=== PATIENT | female | born 1975 | race Caucasian/White ===

== ENCOUNTER 2017-02-26 15:02 | Observation (INO) | payer SELFPAY ==
--- NOTE | 2017-02-26 15:04 | ED PDOC ---
Arrival/HPI - General Time Seen by Provider: 02/26/17 15:04 Historian: Patient - History of Present Illness Narrative History of Present Illness (Text): 02/26/17 15:04 41 year old female, no significant pmh, nkda, complaining of sudden onset of lt. flank pain with hematuria started 2 hours ago. Aching and sharp pain, lt. flank to the lt. sided abdomen, admits nausea and vomit 1 episode, no numbness or tingling, no lower back pain, no palpitation, no chest pain, no coughing, no other medical or psychological complaints. Past Medical History - Provider Review Nursing Documentation Reviewed: Yes Family/Social History - Physician Review Nursing Documentation Reviewed: Yes Family/Social History: Unknown Family HX Allergies/Home Meds Allergies/Adverse Reactions: Allergies No Known Allergies Allergy (Verified 02/26/17 15:08) Review of Systems - Review of Systems Constitutional: absent: Fatigue, Fevers Eyes: absent: Vision Changes ENT: absent: Hearing Changes Respiratory: absent: SOB, Cough Cardiovascular: absent: Chest Pain Gastrointestinal: Abdominal Pain, Nausea, Vomiting Genitourinary Female: Hematuria. absent: Dysuria, Frequency Musculoskeletal: Back Pain. absent: Arthralgias Skin: absent: Rash, Pruritis Neurological: absent: Headache, Dizziness Physical Exam Vital Signs Reviewed: Yes Vital Signs Temp Pulse Resp BP Pulse Ox 02/26/17 21:06 71 18 131/85 98 02/26/17 16:26 74 18 125/56 L 99 02/26/17 15:08 97.7 F 62 20 154/83 H 99 Temperature: Afebrile Blood Pressure: Hypertensive Pulse: Regular Respiratory Rate: Normal Appearance: Positive for: Well-Appearing, Non-Toxic Pain Distress: Severe Mental Status: Positive for: Alert and Oriented X 3 - Systems Exam Head: Present: Atraumatic, Normocephalic Pupils: Present: PERRL Extroacular Muscles: Present: EOMI Conjunctiva: Present: Normal Mouth: Present: Moist Mucous Membranes Neck: Present: Normal Range of Motion Respiratory/Chest: Present: Clear to Auscultation, Good Air Exchange. No: Respiratory Distress, Accessory Muscle Use Cardiovascular: Present: Regular Rate and Rhythm, Normal S1, S2. No: Murmurs Abdomen: Present: Tenderness (lt. sided abdomen), Normal Bowel Sounds. No: Distention, Peritoneal Signs Back: Present: Normal Inspection, CVA Tenderness (+Left flank), Other (no rash) . No: Paraspinal Tenderness Upper Extremity: Present: Normal Inspection. No: Cyanosis, Edema Lower Extremity: Present: Normal Inspection. No: Edema Neurological: Present: GCS=15, Speech Normal, Motor Func Grossly Intact, Gait Normal, Memory Normal Skin: Present: Warm, Dry, Normal Color. No: Rashes Psychiatric: Present: Alert, Oriented x 3, Normal Insight, Normal Concentration Medical Decision Making ED Course and Treatment: 02/26/17 15:26 -labs/ua -CT abdomen and pelvis -IVF/morphine/zofran -Observe and reassess 02/26/17 19:12 -Labs are significant for wbc 12 -Urinalysis show +UTI -CT Abdomen and pelvis: -1. Mild left obstructive uropathy resulting from two 4 mm stones in the left proximal ureteral. -2. Punctate nonobstructing stone in the lower pole of the left kidney. -3. Enlarged fibroid uterus with a large intramural fibroid along the right lateral wall of the uterus. -4. Solitary small gallstone. -IV rocephine/flomax ordered -Pt. will need admission for infected stone. 02/26/17 19:35 -I discussed the case with Dr. Mcneil including labs/radiology results, he will follow up the case and call urologist for routine consult. -Flomax and IVF ordered. -I discussed with Dr. Skinner and he will put in the admission order. - Lab Interpretations Microbiology Results: Microbiology Results 02/26/17 18:17 Urine,Clean Catch Urine Culture - Final Strep Agalactiae Group B Lab Results: 02/26/17 15:24 02/26/17 15:24 Lab Results 02/26/17 15:59: Urine Color Light red, Urine Appearance Bloody, Urine pH 8.5, Ur Specific [place] 1.020, Urine Protein 100 H, Urine Glucose (UA) Negative, Urine Ketones Trace H, Urine Blood Large H, Urine Nitrate Positive H, Urine Bilirubin Negative, Urine Urobilinogen 1.0 H, Ur Leukocyte Esterase Trace H, Urine RBC Tntc, Urine WBC 2 - 5, Ur Epithelial Cells 3 - 4, Urine Bacteria Small , Urine HCG, Qual Negative 02/26/17 15:24: Sodium 142, Potassium 3.9, Chloride 105, Carbon Dioxide 25, Anion Gap 16, BUN 27 H, Creatinine 0.8, Est GFR ( Amer) > 60, Est GFR ( Non-Af Amer) > 60, Random Glucose 121 H, Calcium 10.8 H, Total Bilirubin 0.3, AST 41 H, ALT 37, Alkaline Phosphatase 74, Total Protein 7.2, Albumin 4.3, Globulin 2.9, Albumin/Globulin Ratio 1.5, Lipase 62 02/26/17 15:24: WBC 12.7 H, RBC 4.60, Hgb 13.3, Hct 41.5, MCV 90.2, MCH 28.9, MCHC 32.0, RDW 14.2, Plt Count 296, MPV 10.9, Gran % 80.5 H, Lymph % (Auto) 11.7 L, [place] % (Auto) 5.6, Eos % (Auto) 2.0, Baso % (Auto) 0.2, Gran # 10.27 H, Lymph # 1.5, [place] # 0.7 H, Eos # 0.3, Baso # 0.02 I have reviewed the lab results: Yes Interpretation: Abnormal lab values (wbc 12.7) - RAD Interpretation Radiology Orders: 02/26/17 15:24 ABDOMEN & PELVIS [ABD & PELVIS IV CONTRAST ONLY] [CT] Stat 02/26/17 19:20 CHEST PORTABLE [RAD] Stat PROCEDURE: CT Abdomen and Pelvis with contrast HISTORY: Left sided abdominal pain COMPARISON: None. TECHNIQUE: CT scan of the abdomen and pelvis was performed after intravenous administration of contrast. Oral contrast was not administered. Coronal and sagittal reformatted images were obtained. Contrast dose: 100 mL Omnipaque 350 Radiation dose: Total exam DLP = 586.54 mGy-cm. This CT exam was performed using one or more of the following dose reduction techniques: Automated exposure control, adjustment of the mA and/or kV according to patient size, and/or use of iterative reconstruction technique. FINDINGS: LOWER THORAX: There is bibasilar subsegmental atelectasis. Incompletely imaged are bilateral retroglandular saline implants. LIVER: The liver is normal in size and there is homogeneous enhancement No gross lesion or ductal dilatation. GALLBLADDER AND BILE DUCTS: The gallbladder is well distended. There is a tiny calcified gallstone along the posterior wall. PANCREAS: The pancreas is normal in size and there is homogeneous enhancement. No gross lesion or ductal dilatation. SPLEEN: The spleen is normal in size without focal lesion. There is a nonspecific calcification in the lower pole. ADRENALS: Both adrenal glands are normal in size without discrete nodule. KIDNEYS AND URETERS: Both kidneys are normal in size and there is homogeneous enhancement. There are two 4 mm obstructing stones in the left proximal ureteral with resultant mild dilatation of the proximal ureteral, mild hydronephrosis and mild perinephric inflammatory changes. There is also a punctate nonobstructing stone in the lower pole of the left kidney. There is no right nephrolithiasis. VASCULATURE: No aortic aneurysm. BOWEL: Unremarkable. No obstruction. No gross mural thickening. APPENDIX: Normal appendix. PERITONEUM: No free fluid. No free air. LYMPH NODES: No enlarged lymph nodes. BLADDER: Grossly normal in appearance. REPRODUCTIVE: There is an enlarged fibroid uterus with a large intramural fibroid along the right lateral wall BONES: No acute fracture. There is severe levoscoliosis in the lumbar spine and posterior spinal fixation from T11 to L3. OTHER FINDINGS: None. IMPRESSION: 1. Mild left obstructive uropathy resulting from two 4 mm stones in the left proximal ureteral. 2. Punctate nonobstructing stone in the lower pole of the left kidney. 3. Enlarged fibroid uterus with a large intramural fibroid along the right lateral wall of the uterus. 4. Solitary small gallstone. Chest x-ray: no active disease Stock Replenisher: Radiologist - Medication Orders Current Medication Orders: Discontinued Medications Albuterol/Ipratropium (Duoneb 3 Mg/0.5 Mg (3 Ml) Ud) 3 ml IH Q6 PRN PRN Reason: Shortness of Breath Last Admin: 02/27/17 11:37 Dose: 3 ml Sodium Chloride (Sodium Chloride 0.9%) 1,000 mls @ 999 mls/hr IV .Q1H1M STA Stop: 02/26/17 16:22 Last Admin: 02/26/17 15:45 Dose: 999 mls/hr eMAR Start Stop Document 02/26/17 15:45 SE (Rec: 02/26/17 15:45 SE [facility] [id number]) Intravenous Solution Start Date 02/26/17 Start Time 15:45 Ceftriaxone Sodium (Rocephin 1 Gram Ivpb) 1 gm in 100 mls @ 200 mls/hr IVPB STAT STA PRN Reason: Protocol Stop: 02/26/17 16:53 Last Admin: 02/26/17 16:52 Dose: 200 mls/hr eMAR Start Stop Document 02/26/17 16:52 SE (Rec: 02/26/17 16:52 SE [facility] [id number]) Intravenous Solution Start Date 02/26/17 Start Time 16:52 Sodium Chloride (Sodium Chloride 0.9%) 1,000 mls @ 250 mls/hr IV .Q4H [facility] Last Admin: 02/26/17 19:55 Dose: 250 mls/hr eMAR Start Stop Document 02/26/17 19:55 SE (Rec: 02/26/17 19:55 [place] [facility] [id number] Intravenous Solution Start Date 02/26/17 Start Time 19:55 Sodium Chloride (Sodium Chloride 0.9%) 1,000 mls @ 250 mls/hr IV .Q4H [facility] Last Admin: 02/27/17 00:33 Dose: 250 mls/hr eMAR Start Stop Document 02/27/17 00:33 AVL (Rec: 02/27/17 00:34 AVL [id number]) Intravenous Solution Start Date 02/26/17 Start Time 23:35 End Date 02/27/17 Sodium Chloride (Sodium Chloride 0.9%) 1,000 mls @ 100 mls/hr IV .Q10H [facility] Last Admin: 02/27/17 10:32 Dose: 100 mls/hr eMAR Start Stop Document 02/27/17 10:32 DSZ (Rec: 02/27/17 10:32 DSZ [id number]) Intravenous Solution Start Date 02/27/17 Start Time 09:00 Morphine Sulfate (Morphine) 4 mg IVP STAT STA Stop: 10/06/17 15:23 Last Admin: 02/26/17 15:48 Dose: 4 mg MAR Pain Assessment Document 02/26/17 15:48 SE (Rec: 02/26/17 15:48 [place] [facility] [id number][place] Pain Reassessment Is this a pain reassessment? No Sleep Is patient sleeping during reassessment? No Presence of Pain Presence of Pain Yes Pain Scale Used Pain Scale Used Numeric IVP Administration Document 02/26/17 15:48 SE (Rec: 02/26/17 15:48 [place] [facility] [id number][place] Charges for Administration # of IVP Administrations 1 Re-Assess: MAR Pain Assessment Document 02/26/17 16:48 AVL (Rec: 02/26/17 21:52 AVL [id number]) Pain Reassessment Is this a pain reassessment? Yes Sleep Is patient sleeping during reassessment? No Presence of Pain Presence of Pain No Morphine Sulfate (Morphine) 2 mg IVP [id number] [facility] Last Admin: 02/27/17 07:00 Dose: 2 mg MAR Pain Assessment Document 02/27/17 07:00 AVL (Rec: 02/27/17 07:01 [id number] Pain Reassessment Is this a pain reassessment? No Presence of Pain Presence of Pain Yes Pain Scale Used Pain Scale Used Numeric Location Left, Right or Bilateral Left Pain Location Body Site Abdomen Description Description Intermittent Intensity of Pain at present 8 Pain Behavior Irritability Restlessness Aggravating Factors Changing Position Alleviating Factors/Management Medication Techniques Alleviating Factors Medication IVP Administration Document 02/27/17 07:00 AVL (Rec: 02/27/17 07:01 AVL [id number]) Charges for Administration # of IVP Administrations 1 Morphine Sulfate (Morphine) 2 mg IVP Q4 PRN PRN Reason: Pain, moderate (4-7) Last Admin: 02/27/17 12:27 Dose: 2 mg MAR Pain Assessment Document 02/27/17 12:27 DSZ (Rec: 02/27/17 12:27 DSZ [id number]) Pain Reassessment Is this a pain reassessment? No Sleep Is patient sleeping during reassessment? No Presence of Pain Presence of Pain Yes Pain Scale Used Pain Scale Used Numeric Location Left, Right or Bilateral Left Upper or Lower Lower Pain Location Body Site Abdomen Back Description Description Intermittent Intensity of Pain at present 6 Acceptable Level of Pain 3 Pain Behavior Moaning Facial Grimacing Alleviating Factors/Management Medication Techniques Alleviating Factors Medication IVP Administration Document 02/27/17 12:27 DSZ (Rec: 02/27/17 12:27 DSZ [id number]) Charges for Administration # of IVP Administrations 1 Ondansetron HCl (Zofran Inj) 4 mg IVP STAT STA Stop: 02/26/17 15:23 Last Admin: 02/26/17 15:48 Dose: 4 mg IVP Administration Document 02/26/17 15:48 SE (Rec: 02/26/17 15:48 SE [facility] [id number]) Charges for Administration # of IVP Administrations 1 Pantoprazole Sodium (Protonix Ec Tab) 40 mg PO 0600 [facility] Last Admin: 02/27/17 06:43 Dose: 40 mg Tamsulosin HCl (Flomax) 0.4 mg PO STAT STA Stop: 02/26/17 19:28 Last Admin: 02/26/17 19:55 Dose: 0.4 mg Tamsulosin HCl (Flomax) 0.4 mg PO DAILY [facility] Last Admin: 02/27/17 10:32 Dose: 0.4 mg - PA / REGRINDER OPERATOR / Resident Statement /DO has reviewed & agrees with the documentation as recorded. Disposition/Present on Arrival - Present on Arrival Any Indicators Present on Arrival: No History of DVT/PE: No History of Uncontrolled Diabetes: No Urinary Catheter: No History of Decub. Ulcer: No - Disposition Have Diagnosis and Disposition been Completed?: Yes Diagnosis: UTI (urinary tract infection), Calculus of proximal left ureter, Leukocytosis, Fibroid Disposition: HOSPITALIZED Disposition Time: 19:13 Patient Plan: Admission Condition: STABLE
[2017-02-26] MEDS ORDERED: Morphine 4 mg/ml ISec IVP STA (15:22)
[2017-02-26] MEDS ORDERED: Sodium Chloride 0.9% 1,000 ML IV STA (15:22)
[2017-02-26 16:00] LABS: BASO # 0.02 K/mm3 (0.0-2.0); BASO % 0.2 % (0.0-3.0); EOS # 0.3 (0.0-0.7); GRAN # 10.27 (1.4-6.5); GRAN % 80.5 % (50.0-68.0); HEMATOCRIT 41.5 % (36.0-48.0); LYMPH # 1.5 (1.2-3.4); LYMPH % 11.7 % (22.0-35.0); MEAN CELL VOLUME 90.2 fl (80.0-105.0); MEAN CORPUSCULAR HEMOGLOBIN 28.9 pg (25.0-35.0); MEAN PLATELET VOLUME 10.9 fl (7.0-11.0); MONO # 0.7 (0.1-0.6); MONO % 5.6 % (1.0-6.0); RED CELL DISTRIBUTION WIDTH 14.2 % (11.5-14.5); WHITE BLOOD COUNT 12.7 10^3/ul (4.5-11.0)
[2017-02-26 16:06] LABS: ALB/GLOB RATIO 1.5 (1.1-1.8); ALKALINE PHOSPHATASE 74 U/L (38-126); ALT/SGPT 37 U/L (7-56); AST/SGOT 41 U/L (14-36); BILIRUBIN,TOTAL 0.3 mg/dL (0.2-1.3); BLOOD UREA NITROGEN 27 mg/dL (7-21); CALCIUM 10.8 mg/dL (8.4-10.5); CARBON DIOXIDE 25 mmol/L (21-33); CHLORIDE 105 mmol/L (98-107); GFR AFRICAN-AMERICAN > 60; GLUCOSE,RANDOM 121 mg/dL (70-110); LIPASE 62 U/L (23-300); POTASSIUM 3.9 mmol/L (3.6-5.0); SODIUM 142 mmol/L (132-148); TOTAL PROTEIN 7.2 g/dL (5.8-8.3)
[2017-02-26 16:13] LABS: PH,URINE 8.5 (4.7-8.0); URINE BILIRUBIN NEGATIVE (NEGATIVE); URINE BLOOD LARGE (NEGATIVE); URINE GLUCOSE (UA) NEGATIVE (NEGATIVE); URINE KETONE TRACE mg/dL (NEGATIVE); URINE LEUKOCYTE ESTERASE TRACE Leu/uL (NEGATIVE); URINE PROTEIN 100 mg/dL (<30 mg/dL)
[2017-02-26 16:16] LABS: URINE APPEARANCE BLOODY (CLEAR); URINE COLOR LIGHT RED (YELLOW)
[2017-02-26] MEDS ORDERED: cefTRIAXone 1 gm 1 GM/100 ML BAG IVPB STA (16:24)
[2017-02-26] MEDS ORDERED: Iohexol 350 MG/100 ML VIAL ONE (16:24)
[2017-02-26 16:27] LABS: URINE RBC TNTC /hpf (0-2)
[2017-02-26 16:28] LABS: URINE BACTERIA SMALL (NEG)
[2017-02-26] MEDS ORDERED: Sodium Chloride 0.9% 1,000 ML IV SCH ×2 (19:30→23:30)
--- NOTE | 2017-02-26 20:02 | CT ---
PROCEDURE: CT Abdomen and Pelvis with contrast HISTORY: Left sided abdominal pain COMPARISON: None. TECHNIQUE: CT scan of the abdomen and pelvis was performed after intravenous administration of contrast. Oral contrast was not administered. Coronal and sagittal reformatted images were obtained. Contrast dose: 100 mL Omnipaque 350 Radiation dose: Total exam DLP = 586.54 mGy-cm. This CT exam was performed using one or more of the following dose reduction techniques: Automated exposure control, adjustment of the mA and/or kV according to patient size, and/or use of iterative reconstruction technique. FINDINGS: LOWER THORAX: There is bibasilar subsegmental atelectasis. Incompletely imaged are bilateral retroglandular saline implants. LIVER: The liver is normal in size and there is homogeneous enhancement No gross lesion or ductal dilatation. GALLBLADDER AND BILE DUCTS: The gallbladder is well distended. There is a tiny calcified gallstone along the posterior wall. PANCREAS: The pancreas is normal in size and there is homogeneous enhancement. No gross lesion or ductal dilatation. SPLEEN: The spleen is normal in size without focal lesion. There is a nonspecific calcification in the lower pole. ADRENALS: Both adrenal glands are normal in size without discrete nodule. KIDNEYS AND URETERS: Both kidneys are normal in size and there is homogeneous enhancement. There are two 4 mm obstructing stones in the left proximal ureteral with resultant mild dilatation of the proximal ureteral, mild hydronephrosis and mild perinephric inflammatory changes. There is also a punctate nonobstructing stone in the lower pole of the left kidney. There is no right nephrolithiasis. VASCULATURE: No aortic aneurysm. BOWEL: Unremarkable. No obstruction. No gross mural thickening. APPENDIX: Normal appendix. PERITONEUM: No free fluid. No free air. LYMPH NODES: No enlarged lymph nodes. BLADDER: Grossly normal in appearance. REPRODUCTIVE: There is an enlarged fibroid uterus with a large intramural fibroid along the right lateral wall BONES: No acute fracture. There is severe levoscoliosis in the lumbar spine and posterior spinal fixation from T11 to L3. OTHER FINDINGS: None. IMPRESSION: 1. Mild left obstructive uropathy resulting from two 4 mm stones in the left proximal ureteral. 2. Punctate nonobstructing stone in the lower pole of the left kidney. 3. Enlarged fibroid uterus with a large intramural fibroid along the right lateral wall of the uterus. 4. Solitary small gallstone.
--- NOTE | 2017-02-26 23:45 | CP.PCM.HP ---
<JessaKo hastings - Last Filed: 02/27/17 03:47> History of Present Illness - History of Present Illness History of Present Illness: H/P For IM - TKS DO, PGY-1 CC: Flank Pain HPI: 41 F with no pertinent PMHx presents with suddent onset of L sided, crampy/ sharp flank pain radiating to her back of two hour duration and 9/10 severity at onset with associated symptoms of n/v. Pt states that she has never had pain like this in the past, and that it started while she was at rest. She states the pain was worse or as bad as the pain she had with child . Incidentally, pt states that she was a little sob and had some wheezing earlier. She states that she has a PMHx of Asthma Pt denies f/ch/cp/d/dysuria/frequency/urgency/hematuria/hematochezia/ hematemesis PSHx: C-Sxn, Back surgery for her scoliosis PMHx: Asthma, Scoliosis All: NKDA SocHx: +Social EtOH; Pt denies smoking, illicits Hosp: Pt denies recent hospitalization FamHx: Non-contributory Meds: See MAR ROS: Constitutional: pt denies fever, chills, generalized weakness ENT: pt denies dysphagia, otalgia, hearing deficit, rhinorrhea Eyes: pt denies sudden loss of vision, diplopia, blurred vision MSK: pt denies muscle stiffness, joint pain, extremity cramping Cardio: pt denies heart murmur, cp Pulm: +see hpi; pt denies cough, hemoptysis GI: +see hpi; pt denies loss of appetite, abdominal pain, constipation, melena, d : +see hpi; pt denies burning on urination, urinary frequency, hematuria , urinary urgency Neuro: pt denies paresis, paresthesia, dizziness, mart, numbness, tingling Derm: pt denies skin changes, lesions, nail changes Endo: pt denies intolerance to heat/cold, diaphoresis, night sweats, polydipsia Psych: pt denies anxiety, depression, mood changes Present on Admission - Present on Admission Any Indicators Present on Admission: No Past Patient History - Past Social History Smoking Status: Never Smoked - PSYCHIATRIC Hx Psychophysiologic Disorder: No Hx Substance Use: No - SURGICAL HISTORY Other/Comment: BREAST IMPLANTS Meds Allergies/Adverse Reactions: Allergies Allergy/AdvReac Type Severity Reaction Status Date / Time No Known Allergies Allergy Verified 02/26/17 15:08 Physical Exam - Additional Findings Additional findings: Phys Exam: VS as below Constitutional: a&o x 4, nad Head and Neck: neck supple, no jvd, trachea midline, carotid midline, no cervical/head mass Eyes: ronnell, nonicteric sclera, eom intact ENT: auditory acuity grossly intact, throat not congested, no nasal deformity Cardio: rrr, no m/r/g, no carotid bruit, nml s1, s2 Pulm: +Mild wheezing in anterior RUQ; no accessory muscle use, equal nml breath sounds bilaterally, no RR Abd: +Mild TTP in LUQ and LLQ; s/nd, nbs x 4 q, no palpable masses Derm: no rashes, no ulcers, no lesions Extr: no edema, no cyanosis, no calf tenderness, no lesions, no varicosities Neuro: cn II-XII grossly intact, ue and le 5/5 muscle strength bilaterally , no los ue, le bilaterally and core Results - Vital Signs Recent Vital Signs: Last Vital Signs Temp 97.7 F 02/26/17 15:08 Pulse 71 02/26/17 21:06 Resp 18 02/26/17 21:06 BP 131/85 02/26/17 21:06 Pulse Ox 98 02/26/17 21:06 - Labs Result Diagrams: 02/26/17 15:24 02/26/17 15:24 Assessment & Plan - Assessment and Plan (Free Text) Assessment: A/P 41 F presenting with L flank pain indicative of renal stone; ureteral stone found on CT-Abdomen Renal Stone - CT Abd shows 2-4 mm stone - Uro C/s: Dr. Sepulveda - AM Labs: CMP, CBC, Mg, Phos - Leukocytosis, but no other indications of infection - no need for ABx at this time - NPO - Fluid resuscitation - Pain mgmt: Morphine Hx/O Asthma - Duonebs treatment PPX - SCDs/Protonix <Jj Mcneil - Last Filed: 02/27/17 03:54> Results - Vital Signs Recent Vital Signs: Last Vital Signs Temp 98.6 F 02/26/17 21:27 Pulse 70 02/26/17 21:27 Resp 20 02/26/17 21:27 BP 123/72 02/26/17 21:27 Pulse Ox 98 02/26/17 21:06 - Labs Result Diagrams: 02/26/17 15:24 02/26/17 15:24 Attending/Attestation - Attestation I have personally seen and examined this patient.: Yes I have fully participated in the care of the patient.: Yes I have reviewed all pertinent clinical information: Yes Notes (Text): 02/27/17 03:53 Patient was seen when she was in bed # 21 in the ER. Agree with history, physical examination, assessment and plan. Following should be added. 41 year old woman with left flank pain gives history of urinary tract infections 3 times in past 4 months, scoliosis, asthma ,wheezing, using nebulizer, back surgery, anxiety, consumes alcohol occasionally, uses marijuana, smokes cigarettes occasionally, has history of seasonal allergies, anxiety, admitted for renal calculi, has UTI, hematuria, CT abd/pelvis shows leiomyoma and solitary gall stone.
[2017-02-27] MEDS ORDERED: Albuterol-Ipratrop 3 mg / 0.5 (3 ml) UD IH PRN (00:09)
[2017-02-27 00:28] VITALS: BMI 26.9
[2017-02-27] MEDS: Morphine 2 mg/ml ISec IVP SCH ×2 (01:10→07:00)
[2017-02-27] MEDS ORDERED: Pantoprazole 40 mg EC Tab PO SCH (06:00)
[2017-02-27 07:51] LABS: BASO # 0.02 K/mm3 (0.0-2.0); BASO % 0.3 % (0.0-3.0); EOS # 0.4 (0.0-0.7); EOS % 5.2 % (1.5-5.0); GRAN # 4.39 (1.4-6.5); GRAN % 59.7 % (50.0-68.0); HEMATOCRIT 37.7 % (36.0-48.0); LYMPH # 1.8 (1.2-3.4); LYMPH % 25.1 % (22.0-35.0); MEAN CELL VOLUME 91.1 fl (80.0-105.0); MEAN CORPUSCULAR HEMOGLOBIN 27.8 pg (25.0-35.0); MEAN CORPUSCULAR HGB CONC 30.5 g/dl (31.0-37.0); MEAN PLATELET VOLUME 11.3 fl (7.0-11.0); MONO # 0.7 (0.1-0.6); MONO % 9.7 % (1.0-6.0); RED CELL DISTRIBUTION WIDTH 14.5 % (11.5-14.5); WHITE BLOOD COUNT 7.3 10^3/ul (4.5-11.0)
[2017-02-27 08:15] LABS: ALB/GLOB RATIO 1.3 (1.1-1.8); ALKALINE PHOSPHATASE 56 U/L (38-126); ALT/SGPT 30 U/L (7-56); AST/SGOT 29 U/L (14-36); BILIRUBIN,TOTAL 0.3 mg/dL (0.2-1.3); BLOOD UREA NITROGEN 20 mg/dL (7-21); CALCIUM 9.5 mg/dL (8.4-10.5); CARBON DIOXIDE 27 mmol/L (21-33); CHLORIDE 110 mmol/L (98-107); GFR AFRICAN-AMERICAN > 60; GLUCOSE,RANDOM 93 mg/dL (70-110); MAGNESIUM 1.9 mg/dL (1.7-2.2); POTASSIUM 4.1 mmol/L (3.6-5.0); SODIUM 141 mmol/L (132-148); TOTAL PROTEIN 5.8 g/dL (5.8-8.3)
[2017-02-27] MEDS ORDERED: Morphine 2 mg/ml ISec IVP PRN (09:03)
[2017-02-27] MEDS ORDERED: Sodium Chloride 0.9% 1,000 ML IV SCH (09:03)
[2017-02-27 09:04] VITALS: BP 102/57; RESP 18; TEMP 98; O2SAT 99
--- NOTE | 2017-02-27 10:02 | RAD ---
HISTORY: Medical clearance. Portable upright study 19:50 COMPARISON: No prior. FINDINGS: LUNGS: No active pulmonary disease. PLEURA: No significant pleural effusion identified, no pneumothorax apparent. CARDIOVASCULAR: Normal. OSSEOUS STRUCTURES: No significant abnormalities. VISUALIZED UPPER ABDOMEN: Normal. OTHER FINDINGS: None. IMPRESSION: No active disease. Please note: No preliminary report/ innterpretation of this examination provided by emergency department personnel.
[2017-02-27 11:44] VITALS: PULSE 71
--- NOTE | 2017-02-27 13:36 | CP.PCM.DIS ---
<Brenden Dunaway - Last Filed: 02/27/17 13:29> Provider - Provider Date of Admission: 02/26/17 19:36 Attending physician: Cari Beavers MD Primary care physician: NO PRIMARY CARE PROVIDER Consults: Urology - Dr. Melgar Time Spent in preparation of Discharge (in minutes): 45 Diagnosis - Discharge Diagnosis (1) Calculus of proximal left ureter Status: Acute Hospital Course - Lab Results Lab Results: Most Recent Lab Values WBC 7.3 10^3/ul (4.5-11.0) D 02/27/17 07:42 RBC 4.14 10^6/uL (3.5-6.1) 02/27/17 07:42 Hgb 11.5 g/dL (12.0-16.0) L 02/27/17 07:42 Hct 37.7 % (36.0-48.0) 02/27/17 07:42 MCV 91.1 fl (80.0-105.0) 02/27/17 07:42 MCH 27.8 pg (25.0-35.0) 02/27/17 07:42 MCHC 30.5 g/dl (31.0-37.0) L 02/27/17 07:42 RDW 14.5 % (11.5-14.5) 02/27/17 07:42 Plt Count 275 10^3/uL (120.0-450.0) 02/27/17 07:42 MPV 11.3 fl (7.0-11.0) H 02/27/17 07:42 Gran % 59.7 % (50.0-68.0) 02/27/17 07:42 Lymph % (Auto) 25.1 % (22.0-35.0) 02/27/17 07:42 Cowley % (Auto) 9.7 % (1.0-6.0) H 02/27/17 07:42 Eos % (Auto) 5.2 % (1.5-5.0) H 02/27/17 07:42 Baso % (Auto) 0.3 % (0.0-3.0) 02/27/17 07:42 Gran # 4.39 (1.4-6.5) 02/27/17 07:42 Lymph # 1.8 (1.2-3.4) 02/27/17 07:42 Cowley # 0.7 (0.1-0.6) H 02/27/17 07:42 Eos # 0.4 (0.0-0.7) 02/27/17 07:42 Baso # 0.02 K/mm3 (0.0-2.0) 02/27/17 07:42 Sodium 141 mmol/L (132-148) 02/27/17 07:42 Potassium 4.1 mmol/L (3.6-5.0) 02/27/17 07:42 Chloride 110 mmol/L (98-107) H 02/27/17 07:42 Carbon Dioxide 27 mmol/L (21-33) 02/27/17 07:42 Anion Gap 8 (10-20) L 02/27/17 07:42 BUN 20 mg/dL (7-21) 02/27/17 07:42 Creatinine 0.7 mg/dL (0.7-1.2) 02/27/17 07:42 Est GFR ( Amer) > 60 02/27/17 07:42 Est GFR (Non-Af Amer) > 60 02/27/17 07:42 Random Glucose 93 mg/dL (70-110) 02/27/17 07:42 Calcium 9.5 mg/dL (8.4-10.5) 02/27/17 07:42 Phosphorus 3.0 mg/dL (2.5-4.5) 02/27/17 07:42 Magnesium 1.9 mg/dL (1.7-2.2) 02/27/17 07:42 Total Bilirubin 0.3 mg/dL (0.2-1.3) 02/27/17 07:42 AST 29 U/L (14-36) 02/27/17 07:42 ALT 30 U/L (7-56) 02/27/17 07:42 Alkaline Phosphatase 56 U/L (38-126) 02/27/17 07:42 Total Protein 5.8 g/dL (5.8-8.3) 02/27/17 07:42 Albumin 3.3 g/dL (3.0-4.8) 02/27/17 07:42 Globulin 2.5 gm/dL 02/27/17 07:42 Albumin/Globulin Ratio 1.3 (1.1-1.8) 02/27/17 07:42 Lipase 62 U/L (23-300) 02/26/17 15:24 Urine Color Light red (YELLOW) 02/26/17 15:59 Urine Appearance Bloody (CLEAR) 02/26/17 15:59 Urine pH 8.5 (4.7-8.0) 02/26/17 15:59 Ur Specific Manning 1.020 (1.005-1.035) 02/26/17 15:59 Urine Protein 100 mg/dL (<30 mg/dL) H 02/26/17 15:59 Urine Glucose (UA) Negative mg/dL (NEGATIVE) 02/26/17 15:59 Urine Ketones Trace mg/dL (NEGATIVE) H 02/26/17 15:59 Urine Blood Large (NEGATIVE) H 02/26/17 15:59 Urine Nitrate Positive (NEGATIVE) H 02/26/17 15:59 Urine Bilirubin Negative (NEGATIVE) 02/26/17 15:59 Urine Urobilinogen 1.0 E.U./dL (<1 E.U./dL) H 02/26/17 15:59 Ur Leukocyte Esterase Trace Marques/uL (NEGATIVE) H 02/26/17 15:59 Urine RBC Tntc /hpf (0-2) 02/26/17 15:59 Urine WBC 2 - 5 /hpf (0-6) 02/26/17 15:59 Ur Epithelial Cells 3 - 4 /hpf (0-5) 02/26/17 15:59 Urine Bacteria Small (NEG) 02/26/17 15:59 Urine HCG, Qual Negative (NEGATIVE) 02/26/17 15:59 - Hospital Course Hospital Course: 41 y/o F with no PMH presents with suddent onset of L sided, crampy/sharp flank pain radiating to her back of two hour duration and 9/10 severity at onset with associated symptoms of n/v. Pt received a CT abdomen/pelvis shows a mild left obstructive uropathy with 2 4mm stones in the left proximal ureter. Also, enlarged fibroid uterus with large intramural fibroid along right lateral wall of uterus and small solitary gallstone. Pt admitted for Nephrolithiasis. Pt given a prescription for Flomax and Ciprofloxacin. Pt will also follow up with Dr. Melgar within 1 week. Pt will also follow up with PMD within 1 week. Discharge Exam - Head Exam Head Exam: ATRAUMATIC, NORMAL INSPECTION, NORMOCEPHALIC - Respiratory Exam Respiratory Exam: NORMAL BREATHING PATTERN, UNREMARKABLE. absent: Rhonchi, Wheezes - Cardiovascular Exam Cardiovascular Exam: RRR, +S1, +S2 - GI/Abdominal Exam GI & Abdominal Exam: Normal Bowel Sounds, Soft, Tenderness (Left sided flank pain) - Extremities Exam Extremities exam: normal inspection - Back Exam Back exam: absent: CVA tenderness (L) - Neurological Exam Neurological exam: Alert, CN II-XII Intact, Oriented x3 - Skin Skin Exam: Intact, Normal Color, Warm Discharge Plan - Discharge Medications Prescriptions: Ciprofloxacin [Cipro] 500 mg PO BID #10 tab Tamsulosin [Flomax] 0.4 mg PO DAILY #10 cap - Follow Up Plan Condition: STABLE Disposition: HOME/ ROUTINE Instructions: Kidney Stones (DC), Ureteroscopy (DC), Lithotripsy (DC), Urethral Stent Placement (DC), Ureteral Stones (GEN) Additional Instructions: 1. Follow up with Dr. Galen Melgar urology in 3 days. 2. Increase po liquids. 3. Regular diet. 4. See instruction what to do if underlying symptoms worsen. 5.Continue all meds as per Medication Reconciliation Form. Referrals: PCP,MIRIAM [Primary Care Provider] - Galen Melgar MD [Staff Provider] - <Cari Beavers - Last Filed: 02/27/17 13:57> Provider - Provider Date of Admission: 02/26/17 19:36 Attending physician: Cari Beavers MD Primary care physician: MIRIAM PRIMARY CARE PROVIDER Hospital Course - Lab Results Lab Results: Most Recent Lab Values WBC 7.3 10^3/ul (4.5-11.0) D 02/27/17 07:42 RBC 4.14 10^6/uL (3.5-6.1) 02/27/17 07:42 Hgb 11.5 g/dL (12.0-16.0) L 02/27/17 07:42 Hct 37.7 % (36.0-48.0) 02/27/17 07:42 MCV 91.1 fl (80.0-105.0) 02/27/17 07:42 MCH 27.8 pg (25.0-35.0) 02/27/17 07:42 MCHC 30.5 g/dl (31.0-37.0) L 02/27/17 07:42 RDW 14.5 % (11.5-14.5) 02/27/17 07:42 Plt Count 275 10^3/uL (120.0-450.0) 02/27/17 07:42 MPV 11.3 fl (7.0-11.0) H 02/27/17 07:42 Gran % 59.7 % (50.0-68.0) 02/27/17 07:42 Lymph % (Auto) 25.1 % (22.0-35.0) 02/27/17 07:42 Cowley % (Auto) 9.7 % (1.0-6.0) H 02/27/17 07:42 Eos % (Auto) 5.2 % (1.5-5.0) H 02/27/17 07:42 Baso % (Auto) 0.3 % (0.0-3.0) 02/27/17 07:42 Gran # 4.39 (1.4-6.5) 02/27/17 07:42 Lymph # 1.8 (1.2-3.4) 02/27/17 07:42 Cowley # 0.7 (0.1-0.6) H 02/27/17 07:42 Eos # 0.4 (0.0-0.7) 02/27/17 07:42 Baso # 0.02 K/mm3 (0.0-2.0) 02/27/17 07:42 Sodium 141 mmol/L (132-148) 02/27/17 07:42 Potassium 4.1 mmol/L (3.6-5.0) 02/27/17 07:42 Chloride 110 mmol/L (98-107) H 02/27/17 07:42 Carbon Dioxide 27 mmol/L (21-33) 02/27/17 07:42 Anion Gap 8 (10-20) L 02/27/17 07:42 BUN 20 mg/dL (7-21) 02/27/17 07:42 Creatinine 0.7 mg/dL (0.7-1.2) 02/27/17 07:42 Est GFR ( Amer) > 60 02/27/17 07:42 Est GFR (Non-Af Amer) > 60 02/27/17 07:42 Random Glucose 93 mg/dL (70-110) 02/27/17 07:42 Calcium 9.5 mg/dL (8.4-10.5) 02/27/17 07:42 Phosphorus 3.0 mg/dL (2.5-4.5) 02/27/17 07:42 Magnesium 1.9 mg/dL (1.7-2.2) 02/27/17 07:42 Total Bilirubin 0.3 mg/dL (0.2-1.3) 02/27/17 07:42 AST 29 U/L (14-36) 02/27/17 07:42 ALT 30 U/L (7-56) 02/27/17 07:42 Alkaline Phosphatase 56 U/L (38-126) 02/27/17 07:42 Total Protein 5.8 g/dL (5.8-8.3) 02/27/17 07:42 Albumin 3.3 g/dL (3.0-4.8) 02/27/17 07:42 Globulin 2.5 gm/dL 02/27/17 07:42 Albumin/Globulin Ratio 1.3 (1.1-1.8) 02/27/17 07:42 Lipase 62 U/L (23-300) 02/26/17 15:24 Urine Color Light red (YELLOW) 02/26/17 15:59 Urine Appearance Bloody (CLEAR) 02/26/17 15:59 Urine pH 8.5 (4.7-8.0) 02/26/17 15:59 Ur Specific Manning 1.020 (1.005-1.035) 02/26/17 15:59 Urine Protein 100 mg/dL (<30 mg/dL) H 02/26/17 15:59 Urine Glucose (UA) Negative mg/dL (NEGATIVE) 02/26/17 15:59 Urine Ketones Trace mg/dL (NEGATIVE) H 02/26/17 15:59 Urine Blood Large (NEGATIVE) H 02/26/17 15:59 Urine Nitrate Positive (NEGATIVE) H 02/26/17 15:59 Urine Bilirubin Negative (NEGATIVE) 02/26/17 15:59 Urine Urobilinogen 1.0 E.U./dL (<1 E.U./dL) H 02/26/17 15:59 Ur Leukocyte Esterase Trace Marques/uL (NEGATIVE) H 02/26/17 15:59 Urine RBC Tntc /hpf (0-2) 02/26/17 15:59 Urine WBC 2 - 5 /hpf (0-6) 02/26/17 15:59 Ur Epithelial Cells 3 - 4 /hpf (0-5) 02/26/17 15:59 Urine Bacteria Small (NEG) 02/26/17 15:59 Urine HCG, Qual Negative (NEGATIVE) 02/26/17 15:59 Attending/Attestation - Attestation I have personally seen and examined this patient.: Yes I have fully participated in the care of the patient.: Yes I have reviewed all pertinent clinical information, including history, physical exam and plan: Yes Notes (Text): 02/27/17 13:56 Attending note; Patient seen and examined with resident. Patient is a 41-year-old female with no significant past medical history is admitted with left flank pain. CT showed 4 mm ureteral stone. Currently denies any abdominal pain. Denies hematuria. Case discussed with urologist Dr. Melgar. Started on diet. Patient will be discharged home with close follow-up with urology. Diagnosis; Left ureteral stone UTI
== END 2017-02-27 13:35 | disposition home or self-care (01) ==
LOC: ED 15:02 → ERH 19:36 → 3RNO 21:24
PROVIDERS: ADMIT Internal Medicine; ATTEND Internal Medicine
DX: N20.2 Calculus of kidney with calculus of ureter (principal); N13.9 Obstructive and reflux uropathy, unspecified; D25.1 Intramural leiomyoma of uterus; J45.909 Unspecified asthma, uncomplicated; K80.20 Calculus of gallbladder without cholecystitis without obstruction; M41.9 Scoliosis, unspecified; N39.0 Urinary tract infection, site not specified; Z98.82 Breast implant status
CPT/HCPCS: 36415; 71010; 74177; 80053; 81001; 83690; 83735; 84100; 84703; 85025; 87086; 94640; 96374; 96375; 96376; 99284; G0378; J0696; J2270; J2405; J7040; Q9967